=== PATIENT | male | born 1990 | race African-American/Black ===

== ENCOUNTER 2025-05-26 11:20 | Emergency (ER) | payer MEDICARE, OTHER ==
[~2025-05-26] VITALS: Ht 172.7 cm; Wt 81.6 kg
[~2025-05-26 11:20] MED LIST: DOXY100C79 PO
[2025-05-26 12:57] VITALS: BP 108/62; PULSE 81; RESP 18; TEMP 98.1; O2SAT 97
--- NOTE | 2025-05-26 13:01 | ED.PDOC ---
History of Present Illness HPI Comments 35 y/o M, presents to the ED for CC of flu-like symptoms. Patient states, he has been experiencing flu-like symptoms including: cough, nasal congestion, and weakness x5days. Patient endorses to have positive sick contacts at home. Patient denies shortness of breath, fever, or chills. No other symptoms or mod ifying factors are present at this time. Chief Complaint: Flu like Time Seen by MD: 12:50 Reviewed Notes: Nurses Notes, Medications, Allergies Allergies: Coded Allergies: NO KNOWN ALLERGIES (Unverified , 12/29/21) Home Meds Active Scripts Promethazine HCl (Promethazine Hydrochlorid) 6.25 Mg/5 Ml Aline, 12.5 MG PO TID for 10 Days, #300 ML Prov:MARIAN DENTON MD 05/26/25 Mometasone Furoate (Nasal) (Nasonex 24Hr) 50 Mcg/Act Spr, 50 MCG NA DAILY for 10 Days, #1 SPRAY Prov:MARIAN DENTON MD 05/26/25 Azithromycin (Zithromax) 500 Mg Tab, 500 MG PO DAILY for 5 Days, #5 TAB Prov:MARIAN DENTON MD 05/26/25 Doxycycline (Monohydrate) (Doxycycline) 100 Mg Cap, 100 MG PO BID for 7 Days, #14 CAP 0 Refills Prov:GERALD RICHARDSON 12/29/21 Information Source: Patient Mode of Arrival: Ambulatory Severity: Moderate Timing: Days Duration: Since onset Prehospital treatment: None Past Medical History PAST MEDICAL HISTORY: Denies Surgical History: Denies all surgeries Family History Family History: Unknown Social History Smoker: Non-Smoker Alcohol: Denies ETOH Use Drugs: Denies Drug Use Lives In: Home Constitutional: reports: weakness; denies: chills, diaphoresis, fatigue, fever, malaise, sweats, others EENTM: reports: nose congestion; denies: blurred vision, double vision, ear bleeding, ear discharge, ear drainage, ear pain, ear ringing, eye pain, eye redness, hearing loss, mouth pain, mouth swelling, nasal discharge, nose bleeding, nose pain, photophobia, tearing, throat pain, throat swelling, voice changes, others Respiratory: reports: hemoptysis; denies: cough, orthopnea, SOB at rest, shortness of breath, SOB with excertion, stridor, wheezing, others Cardiovascular: denies: chest pain, dizzy spells, diaphoresis, Dyspnea on exertion, edema, irregular heart beat, left arm pain, lightheadedness, palpitations, PND, syncope, others Gastrointestinal: denies: abdomen distended, abdominal pain, blood streaked bowels, constipated, diarrhea, dysphagia, difficulty swallowing, hematemesis, melena, nausea, poor appetite, poor fluid intake, rectal bleeding, rectal pain, vomiting, others Genitourinary: denies: burning, dysuria, flank pain, frequency, hematuria, incontinence, penile discharge, penile sore, pain, testicle pain, testicle s welling, urgency, others Neurological: denies: dizziness, fainting, headache, left sided numbness, left sided weakness, numbness, paresthesia, pre-existing deficit, right sided numbness, right sided weakness, seizure, speech problems, tingling, tremors, weakness, others Musculoskeletal: denies: back pain, gout, joint pain, joint swelling, muscle pain, muscle stiffness, neck pain, others Integumetry: denies: bruises, change in color, change in hair/nails, dryness, laceration, lesions, lumps, rash, wounds, others Allergic/Immunocompromised: denies: Difficulty Healing, Frequent Infections, Hives, Itching, others Hematologic/Lymphatic: denies: anemia, blood clots, easy bleeding, easy bruising, swollen glands, others Endocrine: denies: excessive hunger, excessive sweating, excessive thirst, excessive urination, flushing, intolerance to cold, intolerance to heat, unexplained weight gain, unexplained weight loss, others Psychiatric: denies: anxiety, bipolar disorder, depression, hopeless, panic disorder, schizophrenia, sleepless, suicidal, others All Other Systems: Reviewed and Negative Physical Exam General Appearance: Mild Distress HEENT: Normal ENT Inspection, PERRL/EOMI, Other (Congestion) Neck: Full Range of Motion, Non-Tender, Normal, Normal Inspection Respiratory: Chest Non-Tender, Lungs Clear, No Accessory Muscle Use, No Respiratory Distress, Normal Breath Sounds Cardiovascular: No Edema, No JVD, No Murmur, No Gallop, Normal Peripheral Pulses, Regular Rate/Rhythm Breast Exam: Deferred Gastrointestinal: No Organomegaly, Non Tender, No Pulsatile Mass, Normal Bowel Sounds, Soft Genitalia: Deferred Pelvic: Deferred Rectal: Deferred Extremities: No calf tenderness, Normal capillary refill, Normal inspection, Normal range of motion, Non-tender, No pedal edema Neurologic: Alert, customer service coordinator II-XII nml as Tested, No Motor Deficits, Normal Affect, Normal Mood, No Sensory Deficits Cerebellar Function: Normal Reflexes: Normal Skin: Dry, Normal Color, Warm Peripheral Pulses: 1+ carotid (R), 1+ carotid (L) Lymphatic: No Adenopathy Was a procedure done? Was a procedure done?: No Differential Dx Considerations may include: Influenza, covid-19, viral syndrome, upper respiratory infection, sinusitis X-Ray, Labs, Meds, VS Vital Signs Date Time Temp Pulse Resp B/P (MAP) Pulse Ox O2 Delivery O2 Flow Rate FiO2 05/26/25 12:57 98.1 81 18 108/62 (77) 97 98.1 05/26/25 12:57 81 18 97 Room Air 05/26/25 11:21 98.1 81 18 108/62 97 98.1 X-Ray, Labs, Meds, VS Comment Course of the fast track eventful Patient will be discharged home to follow up with his PCP Time of 1ST Reevaluation: 13:20 Reevaluation 1ST: Unchanged Patient Education/Counseling: Diagnosis, Treatment Family Education/Counseling: Diagnosis, Treatment SEPSIS Sepsis Screen Date sepsis recognized/suspect: May 26, 2025 Time Sepsis recognized/suspect: 1122 Recent Procedure: No On Antibiotic Therapy: No Respiratory Rate >20: No Heart Rate >90: No Temp<36 C (96.8 F) or >38.3 C: No SBP <90 or MAP <65 mmHG: No New Acute Mental Status Change: No Is the patient on CPAP, BIPAP,: No Vital Signs Date Time Temp Pulse Resp B/P (MAP) Pulse Ox O2 Delivery O2 Flow Rate FiO2 05/26/25 12:57 98.1 81 18 108/62 (77) 97 98.1 05/26/25 12:57 81 18 97 Room Air 05/26/25 11:21 98.1 81 18 108/62 97 98.1 Departure 1 Departure Time of Disposition: 13:56 Impression: Primary Impression: Viral syndrome Additional Impression: Sinusitis Qualified Codes: J01.00 - Acute maxillary sinusitis, unspecified Disposition: 01 HOME / SELF CARE / HOMELESS Condition: Fair Additional Instructions: Push fluids and follow up with your PCP e-Prescriptions Promethazine HCl (Promethazine Hydrochlorid) 6.25 Mg/5 Ml Aline 12.5 MG PO TID for 10 Days, #300 ML Prov: MARIAN DENTON MD 05/26/25 Mometasone Furoate (Nasal) (Nasonex 24Hr) 50 Mcg/Act Spr 50 MCG NA DAILY for 10 Days, #1 SPRAY Prov: MARIAN DENTON MD 05/26/25 Azithromycin (Zithromax) 500 Mg Tab 500 MG PO DAILY for 5 Days, #5 TAB Prov: MARIAN DENTON MD 05/26/25 Discharged With: Self Critical Care Note Critical Care Time?: No Stability Stability form required: No Heart Score Heart Score: Heart Score Response (Comments) Value History N/A 0 EKG N/A 0 Age <45 0 Risk Factors No known risk factors 0 Troponin N/A 0 Total 0 I personally scribed for MARIAN DENTON MD ([email or web address]) on 05/26/25 at 13:01. Electronically submitted by Barbra Allen ([email or web address]). MARIAN DENTON MD May 26, 2025 13:01
[2025-05-26] MEDS ORDERED: MOME50SP11 (13:59)
[2025-05-26] MEDS ORDERED: PROM5SOL PO (13:59)
[2025-05-26] MEDS ORDERED: AZIT500T PO (13:59)
== END 2025-05-26 14:01 | disposition home or self-care (01) ==
LOC: ER 11:20
DX: J01.90 Acute sinusitis, unspecified (principal); B34.9 Viral infection, unspecified; Z79.899 Other long term (current) drug therapy